=== PATIENT | female | born 1990 | race Hispanic/Latino ===

== ENCOUNTER 2021-12-06 12:46 | Emergency (ER) | payer OTHER ==
[~2021-12-06] VITALS: Ht 157.5 cm; Wt 87.5 kg
[2021-12-06] MEDS ORDERED: ACETAMINOPHEN 500 MG TABLET PO ONE (13:30)
[2021-12-06] MEDS ORDERED: 0.9%NACL 1000ML 1,000 ML IV ONE (13:30)
[2021-12-06 13:56] LABS: BASOPHILS % (AUTO) 0.2 % (0.0-5.0); EOSINOPHILS % (AUTO) 0.7 % (0.0-8.0); HEMATOCRIT 39.4 % (36-48); LYMPHOCYTES % (AUTO) 34.6 % (21.0-51.0); MEAN CORPUSCULAR HEMOGLOBIN 28.5 pg (27.0-33.0); MEAN CORPUSCULAR HGB CONC 33.2 g/dL (32.0-36.0); MEAN CORPUSCULAR VOLUME 85.8 fL (79-99); MONOCYTES % (AUTO) 7.2 % (3.0-13.0); NEUTROPHILS % (AUTO) 56.8 % (40.0-77.0); PLATELET COUNT (AUTO) 186 K/uL (130-400); RED BLOOD CELL COUNT(AUTO) 4.59 MIL/uL (4.00-5.50); RED CELL DISTRIBUTION WIDTH 12.1 % (11.0-15.5); WHITE BLOOD COUNT (AUTO) 8.4 K/uL (4.8-10.8)
[2021-12-06 14:02] LABS: CREATININE 0.6 mg/dL (0.5-1.5)
[2021-12-06 14:07] LABS: ALBUMIN 3.6 g/dL (3.5-5.0); BILIRUBIN,TOTAL 0.3 mg/dL (0.2-1.0); TOTAL PROTEIN, SERUM 7.8 g/dL (6.0-8.3)
[2021-12-06 14:42] LABS: APPEARANCE,URINE CLEAR (CLEAR); BILIRUBIN,URINE NEGATIVE (NEGATIVE); COLOR,URINE YELLOW (YELLOW); GLUCOSE, URINE (UA) >=1000 mg/dL (NEGATIVE); KETONES,URINE NEGATIVE (NEGATIVE); LEUKOCYTE ESTERASE ,URINE NEGATIVE (NEGATIVE); NITRATE,URINE NEGATIVE (NEGATIVE); OCCULT BLOOD,URINE NEGATIVE (NEGATIVE); PROTEIN,URINE NEGATIVE (NEGATIVE); UROBILINOGEN,URINE 0.2 mg/dL (0.2-1.0)
[2021-12-06 14:47] LABS: RBC,URINE 0-1 /HPF (0-1)
[2021-12-06 14:48] LABS: BACTERIA,URINE Rare /HPF (None Seen); SQUAMOUS EPITHELIAL CELL,UR Rare /HPF (0-2)
[2021-12-06 14:50] LABS: AMPHET/METH SCREEN,URINE NEGATIVE (NEGATIVE); BARBITURATE SCREEN, URINE NEGATIVE (NEGATIVE); BENZODIAZEPINES SCREEN,URINE NEGATIVE (NEGATIVE); CANNABINOID SCREEN,URINE NEGATIVE (NEGATIVE); COCAINE SCREEN,URINE NEGATIVE (NEGATIVE); OPIATE SCREEN,URINE NEGATIVE (NEGATIVE); PHENCYCLIDINE SCREEN,URINE NEGATIVE (NEGATIVE)
[2021-12-06] MEDS ORDERED: KETOROLAC 30MG VIAL (30MG/ML) IV ONE (15:00)
[2021-12-06 15:55] VITALS: BP 142/81
[2021-12-06] MEDS ORDERED: DICL20GE TP (16:02)
[2021-12-06] MEDS ORDERED: METF-444 PO (16:02)
== END 2021-12-06 16:26 | disposition home or self-care (01) ==
LOC: EDH 12:46
DX: E11.9 Type 2 diabetes mellitus without complications (principal); G44.209 Tension-type headache, unspecified, not intractable; Z98.890 Other specified postprocedural states
CPT/HCPCS: 36415; 70450; 80053; 80305; 81001; 81025; 85025; 96361; 96374; 99284; J1885; J7030

== ENCOUNTER 2023-07-18 09:22 | Emergency (ER) | payer OTHER ==
[~2023-07-18] VITALS: Ht 157.5 cm; Wt 99.8 kg
[~2023-07-18 09:22] MED LIST: DICL20GE TP; METF-444 PO
[2023-07-18 09:50] LABS: RAPID GROUP A STREP negative (NEGATIVE)
[2023-07-18 09:56] LABS: SARS-CoV-2, RNA, NAAT NEGATIVE SARS CoV-2 (NEGATIVE)
[2023-07-18 10:00] LABS: INFLUENZA TYPE A Negative For Type A (NEGATIVE)
[2023-07-18] MEDS ORDERED: ACETAMINOPHEN 325 MG TAB PO ONE (10:00)
[2023-07-18] MEDS ORDERED: 0.9%NACL 1000ML 1,000 ML IV ONE (10:00)
[2023-07-18] MEDS ORDERED: KETOROLAC 15MG/ML VIAL (15MG/ML) IM ONE (10:00)
[2023-07-18 10:18] LABS: INFLUENZA TYPE B Positive For Type B (NEGATIVE)
[2023-07-18] MEDS ORDERED: OSEL75 PO (10:28)
[2023-07-18] MEDS ORDERED: IBUP-2070 PO (10:28)
[2023-07-18 10:39] VITALS: BP 116/72; PULSE 105; RESP 20; O2SAT 98
== END 2023-07-18 11:08 | disposition home or self-care (01) ==
LOC: EDH 09:22
DX: J10.1 Influenza due to other identified influenza virus with other respiratory manifestations (principal); J02.8 Acute pharyngitis due to other specified organisms; Z79.84 Long term (current) use of oral hypoglycemic drugs; Z79.899 Other long term (current) drug therapy; Z98.890 Other specified postprocedural states; Z20.822 Contact with and (suspected) exposure to COVID-19
CPT/HCPCS: 99283; 87635; 87880; 87804 ×2; 96372; C9803; J7030; J1885